=== PATIENT | male | born 1970 | race Caucasian/White ===

== ENCOUNTER 2019-06-12 15:12 | Emergency (ER) | payer BC, SELFPAY ==
[2019-06-12 15:27] VITALS: BP 147/88; PULSE 94; RESP 20; TEMP 37; O2SAT 99
--- NOTE | 2019-06-12 15:54 | ED.URI ---
HPI - URI/Sore Throat General Chief Complaint: Upper Respiratory Infection Stated Complaint: Cold symptoms Time Seen by Provider: 06/12/19 15:55 Source: patient and family Mode of arrival: ambulatory Limitations: no limitations History of Present Illness HPI Narrative: Patient presents with right ear pain right side and sinus tenderness and congestion. Loose congested cough. No shortness of breath no chest pain. Patient states he thinks he ran a fever last night. Patient states his symptoms have been going on for the past 14 days and just got worse in the last 24 to 48 hours. Patient is taking [id number] Mucinex and flu and cold medication for her symptoms with minimal relief. MD elicited complaint: sore throat, nasal congestion and sinus pain Related Data Home Medications Medication Instructions Recorded Confirmed atorvastatin 10 mg PO DAILY 06/12/19 06/12/19 fenofibrate 160 mg PO DAILY 06/12/19 06/12/19 lisinopril-hydrochlorothiazide 1 tablet PO DAILY 06/12/19 06/12/19 nabumetone 750 mg PO BID 06/12/19 06/12/19 nortriptyline 25 mg PO DAILY 06/12/19 06/12/19 Allergies Allergy/AdvReac Type Severity Reaction Status Date / Time No Known Allergies Allergy Verified 06/12/19 16:02 Review of Systems Review of Systems: Narrative: CONSTITUTIONAL: Denies fever, chills, or sweats. EYES: Denies visual changes, redness, or discharge. ENT: Denies sore throat, reports sinus congestion and pressure postnasal drainage and cough CARDIOVASCULAR: Denies chest pain, palpitations, or edema. RESPIRATORY: Denies dyspnea. GASTROINTESTINAL: Denies abdominal pain, nausea, vomiting, or diarrhea. GENITOURINARY: Denies dysuria or hematuria. SKIN: Denies rash or itching. MUSCULOSKELETAL: Denies back pain, joint pain, or myalgia. NEUROLOGIC: Denies headache, numbness, or weakness. PSYCHIATRIC: Denies anxiety or depression. PMFSH Comments At time of signature, agree with nursing past medical, surgical, social and family history. There is no relevant family history pertinent to the presenting complaint Exam Narrative: Exam Narrative: GENERAL: Well-appearing, well-nourished, and in no acute distress. HEAD: Normocephalic, atraumatic. EYES: PERRLA and EOMI. ENT: Nares clear, no rhinorrhea or epistaxis. Mucous membranes moist. Moderate maxillary sinus pressure and tenderness mild postnasal drainage left TM opaque with moderate erythremia to canal right TM dullness NECK: Supple. CHEST: Clear to auscultation. No respiratory distress. HEART: Regular rate and rhythm. No murmur heard. Normal peripheral pulses. ABDOMEN: Soft, nontender, nondistended, normal active bowel sounds. EXTREMITIES: Normal range of motion. No edema. SKIN: Warm, dry, no rash. NEURO: No focal deficits. Alert and oriented x3. Emm[place] Coma Scale Eye Opening: Spontaneous 4 [place] Coma Scale Motor: Obeys Commands 6 [place] Coma Scale Verbal: Oriented 5 [place] Coma Scale Total 15 Course Vital Signs Vital signs: Vital Signs Temperature 37.0 C 06/12/19 15:27 Pulse Rate 94 06/12/19 15:27 Respiratory Rate 06/12/19 15:27 Blood Pressure 147/88 H 06/12/19 15:27 Pulse Oximetry 99 06/12/19 15:27 Temperature 37.0 C 06/12/19 15:27 Pulse Rate 94 06/12/19 15:27 Respiratory Rate 06/12/19 15:27 Blood Pressure 147/88 H 06/12/19 15:27 Pulse Oximetry 99 06/12/19 15:27 Please SIN schedule a followup visit with your personal physician for further evaluation and treatment. Including recheck and discussion of your blood pressure. If your symptoms persist, change or worsen significantly before you can contact your personal physician then please, without delay, go to the emergency department for further evaluation MDM - URI/Sore Throat Differential Diagnosis Differential diagnosis: Likely upper respiratory infection, otitis media, sinusitis and viral infection Critical Care Time Critical Care Time Critical Care Time: No Discharge Plan Disch
== END 2019-06-12 16:05 | disposition home or self-care (01) ==
PROVIDERS: Emergency Provider Nurse Practitioner Family
DX: J01.00 Acute maxillary sinusitis, unspecified (principal)
CPT/HCPCS: 99203; G0463